=== PATIENT | male | born 1965 ===

== ENCOUNTER → 2020-05-27 15:07 | Outpatient (BNVA) | payer BC, SELFPAY | PROVIDERS: PCP Internal Medicine; Visit Provider Urology ==

== ENCOUNTER → 2021-06-17 15:26 | Outpatient (BNVA) | payer BC, SELFPAY | PROVIDERS: PCP Internal Medicine; Visit Provider Urology | DX: Z13.89 Encounter for screening for other disorder (principal) ==

== ENCOUNTER → 2022-09-03 15:04 | Outpatient (BNVA) | payer BC, SELFPAY | PROVIDERS: PCP Internal Medicine; Visit Provider Nurse Practitioner Family ==

== ENCOUNTER 2022-10-19 16:00 | Outpatient (AMB) | payer BC, SELFPAY ==
--- NOTE | 2022-10-19 16:00 | A.OFFVIS_ITS ---
Intake Intake Visit Reasons: Surgery questions (11/29) Intake Note: Patient presents for televisit/patient has questions regarding surgery Urology Medications: none Blood Thinner: aspirin Manager Of Environmental Services Required: No Allergies No Known Allergies Allergy (Verified 10/19/22 16:01) HPI HPI Comments History of Present Illness Details Jaspal is a pleasant male. He is a patient of Dr. Lopez. He is seen for the following urologic conditions - lower urinary tract symptoms - kidney stones Telemedicine Evaluation 15 min Consultation Doximity Edward Video attempted Reviewed CT scan which shows multiple small stones bilaterally At does report having pain on both sides At this stage will plan for bilateral ureteroscopy Questions answered Lower urinary tract symptoms Mild weakness of stream Nocturia No current medications At this point does not have significant bother Continue surveillance Nephrolithiasis Prior stones Imaging - 06/09 renal ultrasound right multiple 4 mm stones, left 6 mm and renal cyst on left with 2.3 cm maximum - 12/10 renal ultrasound small stones rig ht, stable cyst on left side which has coarse calcifications - 11/10 CT scan with multiple calculi elisa ateral PFSH Medical History Aortic root aneurysm History of COVID-19 GERD (gastroesophageal reflux disease) Sarcoidosis Sleep apnea Bicuspid aortic valve BPH (benign prostatic hyperplasia) Nephrolithiasis Elevated cholesterol HTN (hypertension) Surgical History Hx of varicose vein ligation History of esophagogastroduodenoscopy (EGD) History of total right hip replacement History of open reduction and internal fixation (ORIF) procedure H/O colonoscopy Social History Are you a primary personal care worker to a significant other at home: No Do you presently have visiting nurse or other home services: No Patient Tobacco Use Status: Never used Tobacco Use of substances other than those prescribed or required for medical reasons: No Have you been hit, kicked, punched, or otherwise hurt by someone within the past year? If so, by whom?: No Are you DNR?: No Advance Directives: No Advance Directives Information Provided: Yes (brochure mailed) Advance Directives on File: No Recently lost weight without trying: Yes How much weight loss: 14-23 pounds Eating poorly because of decreased appetite: No Nutrition screen score: 4 Nutrition Risks: No Nutritional Risk Poor oral hygiene: No Review of Systems Const Reports as per HPI and Reports no additional complaints Card Reports as per HPI and Reports no additional complaints Resp Reports as per HPI and Reports no additional complaints GI Reports as per HPI and Reports no additional complaints Reports as per HPI Musc Reports no additional complaints and Reports as per HPI Neuro Reports no additional complaints and Reports as per HPI Physical Exam Const General: cooperative, healthy appearing, comfortable and no acute distress Orientation/consciousness: patient oriented x3 HEENT Face and sinus: Yes normal facial exam Mouth: moist mucous membranes Neck Neck: Yes normal visual inspection, Yes full ROM and Yes trachea midline Chest Chest palpation & inspection: normal inspection of the chest Resp Effort & Inspection: normal respiratory effort, able to speak in complete sentences and no respiratory distress GI Inspection: Yes normal to inspection Back/Spine/Pelvis Cervical Spine: normal cervical lordosis Thoracic/Lumbar Spine: thoracic and lumbar spine normal to inspection Skin General skin exam: no rashes or lesions noted Neuro General: patient oriented x3, tone normal and moves all extremities Extrem General: Yes normal to inspection and Yes capillary refill normal Assessment & Plan Assessment & Plan (1) Renal cyst: Code(s): N28.1 - Cyst of kidney, acquired (2) Nephrolithiasis: Code(s): N20.0 - Calculus of kidney (3) BPH w urinary obs/LUTS: Code(s): N40.1 - Benign prostatic hyperplasia with lower urinary tract symptoms; N13.8 - Other obstructive and reflux uropathy Plan Risks, benefits and alternatives to therapy were discussed. These include but are not limited to infection, bleeding, damage to local organs and tissues, need for further interventions. Anesthetic risks regarding cardiac arrhythmia, blood clots, and potential mortality were discussed. The patient understands the typical recovery time and the outpatient nature of the procedure. After consideration of these risks the patient gives full inform ed consent and they wish to move ahead with the procedure. Cystoscopy, bilateral retrograde, bilateral ureteroscopy with laser lithotripsy and stent Patient Instructions: Imaging studies, laboratory and physical exam results were discussed and reviewed in detail. No major barriers to patient understanding were identified. An opportunity to ask questions regarding the treatment plan was provided. All questions were answered. The patient expressed understanding and agreement with the above treatment plan. The patient is aware they should contact our office by phone for worsening of their current condition or the appearance of new urologic symptoms. Compliance is encouraged with any medications and followup testing that is ordered. It is a privilege to participate in the urologic care of your patient. If you have any questions or concerns regarding treatment for the above conditions, or other urologic issues, please do not hesitate to contact me. The office telephone contact is [phone]. This note is constructed using voice recognition software. While every effort has been made to ensure accuracy grove worker errors may have been included. Yours sincerely, Dr Sesar Lynn MD, [facility] - Urology Providers of Expert, Compassionate Care for the Genitourinary System Telehealth Telehealth Location of provider rendering services: practice address Location of patient: address on file Patient Identification confirmed using: Name, : Yes Telehealth method: video Patient verbally consented to treatment: Yes Patient verbally consented to billing insurance company: Yes Patient informed of any privacy concerns related to visit: Yes Coding Level of Care Code Tele Est Pt Level 4 (95107) Diagnoses Renal cyst N28.1 Nephrolithiasis N20.0 BPH w urinary obs/LUTS N40.1; N13.8
== END 2022-10-19 16:40 | disposition home or self-care (01) ==
LOC: HO.HUSH 16:00
PROVIDERS: PCP Internal Medicine; Visit Provider Urology
DX: N28.1 Cyst of kidney, acquired (principal); N20.0 Calculus of kidney; N40.1 Benign prostatic hyperplasia with lower urinary tract symptoms; N13.8 Other obstructive and reflux uropathy
CPT/HCPCS: 99214

== ENCOUNTER → 2022-10-19 16:00 | Outpatient (BNVA) | payer BC, SELFPAY | PROVIDERS: PCP Internal Medicine; Visit Provider Urology ==

== ENCOUNTER 2022-11-29 06:54 | Day surgery (SDC) | payer BC, SELFPAY ==
[2022-11-25 10:33] VITALS: BMI 33.5
--- NOTE | 2022-11-25 13:59 | HO.ANESPROP2 ---
Documented by User: Nenita Kolb NP 11/26/22 09:56 HPI - Anesthesia Eval Consult details Narrative: 57yo M for Left Cystoscopy, Ureteroroscopy, Retro, Laser,poss stent Follows cardiology. Last seen 10/2022 Bicuspid Aortic Valve and Aortic root aneurysm both stable. AYALA and fatigue likely r/t to covid/pulmo Follows pulmo. Last seen 10/2022 Covid 10/22/22 Sarcoid (2022 CT scan stable vs 2019) and MARYBETH (unable to use CPAP since covid) Pt notes lump in throat. Referred for urgent laryngoscopy. Case reviewed with Dr Orellana. Ok for DOS eval d/t urgency of renal stones. [facility] Active Problems Active Problems: All Active Problems (Updated 11/25/22 @ 10:53 by Renetta Moreno RN) Renal cyst (Acute) Nephrolithiasis (Acute) BPH w urinary obs/LUTS (Acute) Past Medical History Medical History Aortic root aneurysm History of COVID-19 GERD (gastroesophageal reflux disease) Sarcoidosis Sleep apnea Bicuspid aortic valve BPH (benign prostatic hyperplasia) Nephrolithiasis Elevated cholesterol HTN (hypertension) Surgical History Surgical History Hx of varicose vein ligation History of esophagogastroduodenoscopy (EGD) History of total right hip replacement History of open reduction and internal fixation (ORIF) procedure H/O colonoscopy Social History Social History Are you a primary md do resident urgent care to a significant other at home: No Do you presently have visiting nurse or other home services: No Patient Tobacco Use Status: Never used Tobacco Use of substances other than those prescribed or required for medical reasons: No Have you been hit, kicked, punched, or otherwise hurt by someone within the past year? If so, by whom?: No Are you DNR?: No Advance Directives: No Advance Directives Information Provided: Yes (brochure mailed) Advance Directives on File: No Recently lost weight without trying: Yes How much weight loss: 14-23 pounds Eating poorly because of decreased appetite: No Nutrition screen score: 4 Nutrition Risks: No Nutritional Risk Poor oral hygiene: No Meds Allergies Allergy/AdvReac Type Severity Reaction Status Date / Time No Known Allergies Allergy Verified 10/19/22 16:01 Home Medications Medication Instructions Recorded Confirmed Last Taken Type candesartan 4 mg tablet 4 mg PO BEDTIME 05/27/20 11/25/22 Unknown History aspirin 81 mg tablet,delayed 81 mg PO BEDTIME 12/22/21 11/25/22 Unknown History release (Adult Low Dose Aspirin) alirocumab 75 mg/mL subcutaneous 75 mg subcut Q2W 09/03/22 11/25/22 Unknown History pen injector (Praluent Pen) atorvastatin 20 mg tablet 20 mg PO BEDTIME 09/03/22 11/25/22 Unknown History cholecalciferol (vitamin D3) 50 50 mcg PO DAILY 11/25/22 11/25/22 Unknown History mcg (2,000 unit) capsule (Vitamin D3) fluticasone fur. 100 mcg-umeclid 1 inh inhalation QAM 11/25/22 11/25/22 Unknown History 62.5 mcg-vilant 25 mcg inhalat.powder (Trelegy Ellipta) omeprazole 20 mg tablet,delayed 20 mg PO BID 11/25/22 11/25/22 Unknown History release Exam Exam Date and Time: November 25, 2022 1359 Height,Weight and Vital Signs: Height 5 ft 11 in Weight 108.862 kg Pertinent Lab Results Pertinent Lab Results: CBC and CMP 09/2022 from outside facility WNL except mild increase BUN Narrative Narrative: EKG 10/2022 NSR @ 61, LAFB ECHO 09/2022 Moderately dilated LV LVEF 55-65% Normal diastolic function bicuspid aortic valve mild to moderate aortic insuffic aortic root 4.3cm PFT 08/2022 Spirometry: Nml FEV1 and FVC. No bronchodilator response. Nml flow volume loops. Nml total lung capacity Nml diffusion capacity Nml PFT with nitric oxide level indicating intermedate level of nitric oxide Assessment and Plan Assessment Anesthesia Assessment: Chart Reviewed Documented by User: Rahel Dupont MD 11/29/22 08:17 [facility] Past Medical History Medical History Aortic root aneurysm History of COVID-19 GERD (gastroesophageal reflux disease) Sarcoidosis Sleep apnea Bicuspid aortic valve BPH (benign prostatic hyperplasia) Nephrolithiasis Elevated cholesterol HTN (hypertension) Family History Family history of problems with anesthesia: No Surgical History Surgical History Hx of varicose vein ligation History of esophagogastroduodenoscopy (EGD) History of total right hip replacement History of open reduction and internal fixation (ORIF) procedure H/O colonoscopy History of Problems with Anesthesia: No Social History Social History Are you a primary md do resident urgent care to a significant other at home: No Do you presently have visiting nurse or other home services: No Patient Tobacco Use Status: Never used Tobacco Use of substances other than those prescribed or required for medical reasons: No Have you been hit, kicked, punched, or otherwise hurt by someone within the past year? If so, by whom?: No Are you DNR?: No Advance Directives: No Advance Directives Information Provided: Yes (brochure mailed) Advance Directives on File: No Recently lost weight without trying: Yes How much weight loss: 14-23 pounds Eating poorly because of decreased appetite: No Nutrition screen score: 4 Nutrition Risks: No Nutritional Risk Poor oral hygiene: No Meds Allergies Allergy/AdvReac Type Severity Reaction Status Date / Time No Known Allergies Allergy Verified 10/19/22 16:01 Home Medications Medication Instructions Recorded Confirmed Last Taken Type candesartan 4 mg tablet 4 mg PO BEDTIME 05/27/20 11/25/22 Unknown History aspirin 81 mg tablet,delayed 81 mg PO BEDTIME 12/22/21 11/25/22 Unknown History release (Adult Low Dose Aspirin) alirocumab 75 mg/mL subcutaneous 75 mg subcut Q2W 09/03/22 11/25/22 Unknown History pen injector (Praluent Pen) atorvastatin 20 mg tablet 20 mg PO BEDTIME 09/03/22 11/25/22 Unknown History cholecalciferol (vitamin D3) 50 50 mcg PO DAILY 11/25/22 11/25/22 Unknown History mcg (2,000 unit) capsule (Vitamin D3) fluticasone fur. 100 mcg-umeclid 1 inh inhalation QAM 11/25/22 11/25/22 Unknown History 62.5 mcg-vilant 25 mcg inhalat.powder (Trelegy Ellipta) omeprazole 20 mg tablet,delayed 20 mg PO BID 11/25/22 11/25/22 Unknown History release Exam Airway Mallampati Class: II TM Dist: >3cm Neck ROM: Full Heart: rrr Lungs: cta Assessment and Plan Final Anesthetic Review Family History of Problems with Anesthesia: No History of Problems with Anesthesia: No NPO: Yes ASA Class: III Final Preanesthetic Review: No Changes in Pt Med Stat, Meds/Allgs Chart Reviewed, Consent Obtained/Reviewed and Anes Risks/Benef Reviewed Patient Risk: Intermediate Procedure Risk: Low Anesthetic Plan Anesthetic Plan: GA Disposition: Standard PACU
[2022-11-29] VITALS (8 sets, daily range): BP systolic 107–128; BP diastolic 58–76; PULSE 49–63; RESP 16–18; TEMP 36.3–36.9; O2SAT 93–99
--- NOTE | ~2022-11-29 | FL_ITS ---
EXAMINATION: XR FLUOROSCOPY WITH IMAGES CLINICAL INFORMATION: Left stone. COMPARISON: None available. TECHNIQUE: Fluoroscopy Supervised By: Dr. Sesar Lynn. Fluoroscopy Time: 42.7 seconds. Cumulative Dose: 18.43 mGy. DAP: N/A Images: 3. FINDINGS: Fluoroscopy guidance for bilateral retrograde exam. Images demonstrate contrast opacification of both renal collecting systems. FL/FL guidance in OR IMPRESSION: Fluoroscopy guidance for urology procedure.
--- NOTE | 2022-11-29 08:28 | HE.PHANOTE ---
RE LEVOFLOXACIN MESSAGED DR PENN ABOUT RISK OF AORTIC DISSECTION/ANUERYSM IN PTS WITH PMH OF SUCH AND LEVOFLOXACIN USE. PROVIDER WANTS TO CONTINUE WITH CURRENT COURSE FLORENTINO
[2022-11-29] MEDS: Lactated Ringers 1,000 ML 100 ML IVCONT (08:29)
--- NOTE | 2022-11-29 08:30 | MHC.SHP ---
Pre-Procedural Eval Section A Date of Service: 11/29/22 The patient is an INPATIENT: No Changes since office visit: No Cold of Flu in the past 2 weeks, No New Medical Problems, No Changes in Medication and No Patient answered all questions The History & Physical has been completed within 30 days and I have reviewed it.: Yes Section B Chief Complaint: Calculus of kidney Details of Present Illness: Bilateral stones, bilateral procedure with bilateral retrogrades Allergies: Allergies Allergy/AdvReac Type Severity Reaction Status Date / Time No Known Allergies Allergy Verified 10/19/22 16:01 Plan Diagnosis/Plan: Unchanged (Cystoscopy, bilateral retrograde, bilateral ureteroscopy with laser lithotripsy stent placed) I have reviewed the history and physical and performed a pertinent physical examination on my patient. No changes have occurred unless specified. Time Spent With Patient Time: Total time managing care of this patient today ____ minutes.
--- NOTE | 2022-11-29 10:04 | W.PM.OPN ---
Operative Note Operative Note Date of Service: 11/29/22 Narrative: PreOperative Diagnosis: Bilateral renal stones Post Operative Diagnosis: bilateral renal stones Procedure: - cystoscopy, bilateral retrograde - bilateral dilatation of ureteric orifice under fluoroscopy - bilateral ureteroscopy, laser lithotripsy, stone basketing Surgeon: Dr Sesar Lynn Anesthesia: General Indications for procedure: bilateral renal stones Procedure: After informed consent was verified patient was brought to the operating placed in supine position. Anesthesia was administered per protocol. Patient was placed in modified dorsal lithotomy position and prepped and draped in a sterile fashion. Safety pause time-out and side of surgery confirmed. Antibiotics confirmed. 22 Vietnamese cystoscope was inserted per urethra. Bladder was normal in its entirety. Both ureteric orifices were in normal position. The left ureteric orifice was cannulated and a retrograde examination was performed. No filling defects seen. A Sensor guidewire was placed up to the level of the renal pelvis under fluoroscopy. The rigid cystoscope was removed and the inner cannula of ureteric access sheath was used under fluoroscopy to dilate the ureteric orifice. The ureteric access sheath was placed and the inner cannula with access wire removed. The disposable digital flexible ureteral scope was placed. Stones were encountered in every renal calyx. All 7 had a small stone sitting on the renal papilla. The stones were broken using dusting settings on the laser. There were clearly submucosal calcium deposition consistent with a Medullary sponge type picture. Once complete the ureteroscope was backed slowly out of the kidney and ureter. There was minimal damage to the ureteral mucosa and a decision was made not to leave a stent. Attention was directed to the right side. The right ureteric orifice was cannulated and a retrograde examination was performed. No filling defects seen. A Sensor guidewire was placed up to the level of the renal pelvis under fluoroscopy. The rigid cystoscope was removed and the inner cannula of ureteric access sheath was used under fluoroscopy to dilate the ureteric orifice. The ureteric access sheath was placed and the inner cannula with access wire removed. The disposable digital flexible ureteral scope was placed. Stones were encountered in every renal calyx. All 6 had a stone sitting on the renal papilla. On this side a basket was used to remove stones from each papilla. There were clearly submucosal calcium deposition consistent with a Medullary sponge type picture. Once complete the ureteroscope was backed slowly out of the kidney and ureter. There was minimal damage to the ureteral mucosa and a decision was made not to leave a stent. The bladder was emptied. The patient tolerated the procedure well and was extubated in the operating room, and transferred in stable condition to the recovery area. Pathology: stones Drains: none
[2022-11-29] MEDS: Phenazopyridine HCL 100 MG TABLET PO (10:26)
[2022-11-29] MEDS: ondansetron HCL 4 MG/2 ML VIAL IVPUSH (10:37)
[2022-11-29] MEDS: Acetaminophen 325 MG TABLET 975 MG PO (10:50)
[2022-12-02 23:13] LABS: Stone Source RENAL STONE
== END 2022-11-29 11:26 | disposition home or self-care (01) ==
PROVIDERS: PCP Internal Medicine; Visit Provider Urology
PROC: (CPT 52353; principal; 2022-11-29 08:40)
DX: N20.0 Calculus of kidney (principal); N28.1 Cyst of kidney, acquired; N40.0 Benign prostatic hyperplasia without lower urinary tract symptoms; D86.9 Sarcoidosis, unspecified; I10 Essential (primary) hypertension; E78.00 Pure hypercholesterolemia, unspecified; Q23.1 Congenital insufficiency of aortic valve; Q25.43 Congenital aneurysm of aorta; G47.33 Obstructive sleep apnea (adult) (pediatric); Z99.89 Dependence on other enabling machines and devices; Z79.82 Long term (current) use of aspirin; Z79.899 Other long term (current) drug therapy; Z79.51 Long term (current) use of inhaled steroids; Z86.16 Personal history of COVID-19; Z98.890 Other specified postprocedural states
CPT/HCPCS: 52353; 52352; 82365; 88300; C1758; C1769; J1885; J1956; J2405; J3010; Q9967

== ENCOUNTER → 2022-11-29 06:54 | Outpatient (BNV) | payer BC, SELFPAY | PROVIDERS: PCP Internal Medicine; Visit Provider Urology | DX: N20.0 Calculus of kidney (principal) | CPT/HCPCS: 52352; 52353 ==

== ENCOUNTER 2022-12-14 08:51 | Outpatient (AMB) | payer BC, SELFPAY ==
--- NOTE | 2022-12-14 08:53 | A.OFFVIS_ITS ---
Intake Intake Visit Reasons: stent removal? Intake Note: Patient is Present for Possible Stent Removal Urology Medication: Tamsulosin (Patient is currently not taking Tamsulosin) Antibiotic Allergies: None Blood Thinners: Aspirin Pharmacy: [facility] Compliants: Patient states that he does not currently have a stent in place Allergies No Known Allergies Allergy (Verified 12/14/22 08:55) Medication List - Last Reconciled 12/14/22 by Sesar Lynn MD alirocumab (Praluent Pen) 75 mg subcut Q2W aspirin (Adult Low Dose Aspirin) 81 mg PO BEDTIME atorvastatin 20 mg PO BEDTIME candesartan 4 mg PO BEDTIME cholecalciferol (vitamin D3) (Vitamin D3) 50 mcg PO DAILY zmypcnijnpb-enbylecro-rvinygak 100-62.5-25 mcg (Trelegy Ellipta) 1 inh inhalation QAM omeprazole 20 mg PO BID omeprazole 20 mg PO BID phenazopyridine (Pyridium) 100 mg PO TID PRN 4 days tamsulosin 0.4 mg PO BEDTIME 14 days HPI HPI Comments History of Present Illness Details Jaspal is a pleasant male. He is a patient of Dr. Lopez. He is seen for the following urologic conditions - lower urinary tract symptoms - kidney stones Postprocedure Bilateral laser Discussed stone composition Calcium oxalate monohydrate 90% Plan for Litholink to direct medical management imaging in 3 month Lower urinary tract symptoms Mild weakness of stream Nocturia No current medications At this point does not have significant bother Continue surveillance Nephrolithiasis Prior stones Composition - 11/10 calcium oxalate monohydrate 90% Imaging - 06/09 renal ultrasound right multiple 4 mm stones, left 6 mm and renal cyst on left with 2.3 cm maximum - 12/10 renal ultrasound small stones rig ht, stable cyst on left side which has coarse calcifications - 11/10 CT scan with multiple calculi elisa ateral Intervention - 11/10 bilateral ureteroscopy PFSH Medical History Aortic root aneurysm History of COVID-19 GERD (gastroesophageal reflux disease) Sarcoidosis Sleep apnea Bicuspid aortic valve BPH (benign prostatic hyperplasia) Nephrolithiasis Elevated cholesterol HTN (hypertension) Surgical History Hx of varicose vein ligation History of esophagogastroduodenoscopy (EGD) History of total right hip replacement History of open reduction and internal fixation (ORIF) procedure H/O colonoscopy Social History Are you a primary child caregiver to a significant other at home: No Do you presently have visiting nurse or other home services: No Patient Tobacco Use Status: Never used Tobacco Review of Systems Const Denies chills and Denies fever(s) Card Reports no additional complaints and Denies syncope Resp Denies cough GI Denies abdominal pain and Denies heartburn Reports as per HPI and Denies change in libido Neuro Denies syncope Psych Denies change in libido Endo Denies change in libido Physical Exam Const General: cooperative, healthy appearing, comfortable and no acute distress Orientation/consciousness: patient oriented x3 HEENT Face and sinus: Yes normal facial exam Mouth: moist mucous membranes Neck Neck: Yes normal visual inspection, Yes full ROM and Yes trachea midline Chest Chest palpation & inspection: normal inspection of the chest Resp Effort & Inspection: normal respiratory effort, able to speak in complete sentences and no respiratory distress GI Inspection: Yes normal to inspection Back/Spine/Pelvis Cervical Spine: normal cervical lordosis Thoracic/Lumbar Spine: thoracic and lumbar spine normal to inspection Skin General skin exam: no rashes or lesions noted Neuro General: patient oriented x3, gait normal, tone normal and moves all extremities Extrem General: Yes normal to inspection and Yes capillary refill normal Results AMB Urinalysis, Automated UA Leukoctes 0 Nanda/uL Last Edit by LUDMILA Mcgraw on 12/14/22 09:04 UA Nitrite Negative Last Edit by LUDMILA Mcgraw on 12/14/22 09:04 UA Urobilinogen 0.2 mg/dL Last Edit by LUDMILA Mcgraw on 12/14/22 09:0 4 UA Protein 15 mg/dL Last Edit by LUDMILA Mcgraw on 12/14/22 09:04 UA pH 5.5 Last Edit by LUDMILA Mcgraw on 12/14/22 09:04 UA Blood 10 Mehdi/uL Last Edit by LUDMILA Mcgraw on 12/14/22 09:04 UA Specific [place] 1.020 Last Edit by LUDMILA Mcgraw on 12/14/22 09: 04 UA Ketone Negative Last Edit by Yamileth Murphy, RMA on 12/14/22 09:04 UA Bilirubin 0 mg/dL Last Edit by Yamileth Murphy, RMA on 12/14/22 09:04 UA Glucose 0 mg/dL Last Edit by Yamileth Murphy RMA on 12/14/22 09:04 Results Reviewed Results Reviewed: Laboratory Last Values Urine pH (Auto) 5.5 12/14/22 08:57 Specific [place] (Auto) 1.020 12/14/22 08:57 Urine Protein (Auto) 15 mg/dL 12/14/22 08:57 Glucose (UA)(Auto) 0 mg/dL 12/14/22 08:57 Urine Ketones (Auto) Negative 12/14/22 08:57 Urine Blood (Auto) 10 Mehdi/uL 12/14/22 08:57 Urine Nitrite (Auto) Negative 12/14/22 08:57 Urine Bilirubin (Auto) 0 mg/dL 12/14/22 08:57 Urine Urobilinogen (Auto) 0.2 mg/dL 12/14/22 08:57 Leukocyte Esterase (Auto) 0 Nanda/uL 12/14/22 08:57 Assessment & Plan Assessment & Plan (1) Nephrolithiasis: Comment: Calcium oxalate monohydrate 90% Code(s): N20.0 - Calculus of kidney Plan Three month follow-up imaging and Litholink Orders: Orders 2 AMB Urinalysis Automated Today Z13.9 - Encounter for screening, unspecified US renal BI 3 Months N20.0 - Calculus of kidney Patient Instructions: Imaging studies, laboratory and physical exam results were discussed and reviewed in detail. No major barriers to patient understanding were identified. An opportunity to ask questions regarding the treatment plan was provided. All questions were answered. The patient expressed understanding and agreement with the above treatment plan. The patient is aware they should contact our office by phone for worsening of their current condition or the appearance of new urologic symptoms. Compliance is encouraged with any medications and followup testing that is ordered. It is a privilege to participate in the urologic care of your patient. If you have any questions or concerns regarding treatment for the above conditions, or other urologic issues, please do not hesitate to contact me. The office telephone contact is [phone]. This note is constructed using voice recognition software. While every effort has been made to ensure accuracy analyzer sales errors may have been included. Yours sincerely, Dr Sesar Lynn MD, [facility] - Urology Providers of Expert, Compassionate Care for the Genitourinary System Coding Level of Care Code Est Pt Level 3 (51809) Diagnoses Nephrolithiasis N20.0
== END 2022-12-14 09:15 | disposition home or self-care (01) ==
LOC: HO.HUSH 08:51
PROVIDERS: PCP Internal Medicine; Visit Provider Urology
DX: Z13.9 Encounter for screening, unspecified (principal); N20.0 Calculus of kidney
CPT/HCPCS: 99213

== ENCOUNTER → 2022-12-14 08:51 | Outpatient (BNVA) | payer BC, SELFPAY | PROVIDERS: PCP Internal Medicine; Visit Provider Urology | DX: Z48.816 Encounter for surgical aftercare following surgery on the genitourinary system (principal) | CPT/HCPCS: 81003 ==

== ENCOUNTER 2023-03-09 15:09 | Outpatient (AMB) | payer BC, SELFPAY ==
--- NOTE | 2023-03-09 15:23 | A.OFFVIS_ITS ---
Intake Intake Visit Reasons: /US/First Wind(set) Intake Note: Patient is Present today for a follow-up on Litholink Results Urology Medication: Tamsulosin (Patient is currently not taking Tamsulosin) Antibiotic Allergies: None Blood Thinners: Aspirin Pharmacy: [facility] Trial Required: No Accompanied by: Self / Same As Patient Allergies No Known Allergies Allergy (Verified 03/09/23 15:24) Medication List - Last Reconciled 03/09/23 by Sesar Lynn MD alirocumab (Praluent Pen) 75 mg subcut Q2W aspirin (Adult Low Dose Aspirin) 81 mg PO BEDTIME atorvastatin 20 mg PO BEDTIME candesartan 4 mg PO BEDTIME cholecalciferol (vitamin D3) (Vitamin D3) 50 mcg PO DAILY wdntgltuhax-djrciwind-vedxeplc 100-62.5-25 mcg (Trelegy Ellipta) 1 inh inhalation QAM omeprazole 20 mg PO BID omeprazole 20 mg PO BID phenazopyridine (Pyridium) 100 mg PO TID PRN 4 days potassium citrate ER 20 mEq (2 x 10 mEq (1,080 mg)) PO BID 90 days tamsulosin 0.4 mg PO BEDTIME 14 days HPI HPI Comments History of Present Illness Details Jaspal is a pleasant male. He is a patient of Dr. Lopez. He is seen for the following urologic conditions - lower urinary tract symptoms - kidney stones Calcium oxalate monohydrate 90% Imaging without evidence of stones History multiple people with stones 24 hour urine discussed. Good volume, L ow pH, high sodium 255, low citrate 32 Recommend initiation potassium citrate with advice for minimizing sodium intake 6 month follow-up imaging repeat Litholi nk Lower urinary tract symptoms Mild weakness of stream Nocturia No current medications At this point does not have significant bother Continue surveillance Nephrolithiasis Prior stones Composition - 11/10 calcium oxalate monohydrate 90% Imaging - 06/09 renal ultrasound right multiple 4 mm stones, left 6 mm and renal cyst on left with 2.3 cm maximum - 12/10 renal ultrasound small stones rig ht, stable cyst on left side which has coarse calcifications - 11/10 CT scan with multiple calculi elisa ateral - 02/10 renal ultrasound no stones, know n left stable cyst Intervention - 11/10 bilateral ureteroscopy PFSH Medical History Aortic root aneurysm History of COVID-19 GERD (gastroesophageal reflux disease) Sarcoidosis Sleep apnea Bicuspid aortic valve BPH (benign prostatic hyperplasia) Nephrolithiasis Elevated cholesterol HTN (hypertension) Surgical History Hx of varicose vein ligation History of esophagogastroduodenoscopy (EGD) History of total right hip replacement History of open reduction and internal fixation (ORIF) procedure H/O colonoscopy Social History Are you a primary day care aide to a significant other at home: No Do you presently have visiting nurse or other home services: No Patient Tobacco Use Status: Never used Tobacco Review of Systems Const Denies chills and Denies fever(s) Card Reports no additional complaints and Denies syncope Resp Denies cough GI Denies abdominal pain and Denies heartburn Reports as per HPI and Denies change in libido Neuro Denies syncope Psych Denies change in libido Endo Denies change in libido Physical Exam Const General: cooperative, healthy appearing, comfortable and no acute distress Orientation/consciousness: patient oriented x3 HEENT Face and sinus: Yes normal facial exam Mouth: moist mucous membranes Neck Neck: Yes normal visual inspection, Yes full ROM and Yes trachea midline Chest Chest palpation & inspection: normal inspection of the chest Resp Effort & Inspection: normal respiratory effort, able to speak in complete sentences and no respiratory distress GI Inspection: Yes normal to inspection Back/Spine/Pelvis Cervical Spine: normal cervical lordosis Thoracic/Lumbar Spine: thoracic and lumbar spine normal to inspection Skin General skin exam: no rashes or lesions noted Neuro General: patient oriented x3, gait normal, tone normal and moves all extremities Extrem General: Yes normal to inspection and Yes capillary refill normal Assessment & Plan Assessment & Plan (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 No major barriers to patient understanding were identified. An opportunity to ask questions regarding the treatment plan was provided. All questions were answered. The patient expressed understanding and agreement with the above treatment plan. The patient is aware they should contact our office by phone for worsening of their current condition or the appearance of new urologic symptoms. Compliance is encouraged with any medications and followup testing that is ordered. It is a privilege to participate in the urologic care of your patient. If you have any questions or concerns regarding treatment for the above conditions, or other urologic issues, please do not hesitate to contact me. The office telephone contact is [phone]. This note is constructed using voice recognition software. While every effort has been made to ensure accuracy supervisor screen printing errors may have been included. Yours sincerely, Dr Sesar Lynn MD, [facility] - Urology Providers of Expert, Compassionate Care for the Genitourinary System Coding Level of Care Code Est Pt Level 4 (63079) Diagnoses Hypocitraturia R82.991 Nephrolithiasis N20.0
== END 2023-03-09 15:52 | disposition home or self-care (01) ==
PROVIDERS: PCP Internal Medicine; Visit Provider Urology
DX: R82.991 Hypocitraturia (principal); N20.0 Calculus of kidney
CPT/HCPCS: 99213

== ENCOUNTER → 2023-03-09 15:09 | Outpatient (BNVA) | payer BC, SELFPAY | PROVIDERS: PCP Internal Medicine; Visit Provider Urology ==

== ENCOUNTER 2023-09-06 15:41 | Outpatient (AMB) | payer BC, SELFPAY ==
--- NOTE | 2023-09-06 15:43 | MHC.OFFVIS ---
Intake Visit Reasons: 6m fu/litho Intake Note: Patient is present for Telephone Litho Results Allergies No Known Allergies Allergy (Verified 03/09/23 15:24) Medication List - Last Reconciled 09/06/23 by Sesar Lynn MD alirocumab (Praluent Pen) 75 mg subcut Q2W aspirin (Adult Low Dose Aspirin) 81 mg PO BEDTIME atorvastatin 20 mg PO BEDTIME candesartan 4 mg PO BEDTIME cholecalciferol (vitamin D3) (Vitamin D3) 50 mcg PO DAILY vexxjnkreqy-dsicwkqqi-kqmwwpyw 100-62.5-25 mcg (Trelegy Ellipta) 1 inh inhalation QAM omeprazole 20 mg PO BID omeprazole 20 mg PO BID phenazopyridine (Pyridium) 100 mg PO TID PRN 4 days potassium citrate ER 10 mEq PO BID 90 days tamsulosin 0.4 mg PO BEDTIME 14 days HPI Comments Details: Jaspal is a pleasant male. He is a patient of Dr. Lopez. He is seen for the following urologic conditions - lower urinary tract symptoms - kidney stones Telemedicine Evaluation 15 min Consultation [facility] Video Discussion about current Litholink Follow-up after starting potassium citrate Jump in citrate from 32 to 678 Cut back potassium citrate to 10 mEq p.o. b.i.d. Also noted to have continued high calcium 314, sodium 327 Recommendation to better manage salt intake as high calcium is related to high sodium Decreased protein intake Twelve month follow-up renal ultrasound with repeat Litholink Calcium oxalate monohydrate 90% 24 hour urine discussed. Good volume, Low pH, high sodium 255, low citrate 32, high calcium Recommend initiation potassium citrate with advice for minimizing sodium intake Lower urinary tract symptoms Mild weakness of stream Nocturia No current medications At this point does not have significant bother Continue surveillance Nephrolithiasis Prior stones Composition - 11/10 calcium oxalate monohydrate 90% Imaging - 06/09 renal ultrasound right multiple 4 mm stones, left 6 mm and renal cyst on left with 2.3 cm maximum - 12/10 renal ultrasound small stones right, stable cyst on left side which has coarse calcifications - 11/10 CT scan with multiple calculi bilateral - 02/10 renal ultrasound no stones, known left stable cyst Intervention - 11/10 bilateral ureteroscopy [facility] - 03/12 - Good volume, Low pH, high sodium 255, low citrate 32, high calcium - 09/11 - volume 2500, calcium 314, citrate 678, pH 6.4, sodium 327, uric acid 1011 [facility] Medical History Aortic root aneurysm History of COVID-19 GERD (gastroesophageal reflux disease) Sarcoidosis Sleep apnea Bicuspid aortic valve BPH (benign prostatic hyperplasia) Nephrolithiasis Elevated cholesterol HTN (hypertension) Surgical History Hx of varicose vein ligation History of esophagogastroduodenoscopy (EGD) History of total right hip replacement History of open reduction and internal fixation (ORIF) procedure H/O colonoscopy Social History Are you a primary healthcare network consultant to a significant other at home: No Do you presently have visiting nurse or other home services: No Patient Tobacco Use Status: Never used Tobacco Review of Systems Const All systems reviewed & are unremarkable except as noted in HPI and below Reports no additional complaints Resp Reports no additional complaints GI Reports no additional complaints Reports as per HPI Musc Reports no additional complaints Physical Exam Telemedicine evaluation Appropriate responses Regular breathing rate and rhythm HEENT Head: Yes normal to inspection Ears: hearing grossly normal bilaterally Eyes General: appearance normal, both eyes and all related structures Neck Neck: Yes normal visual inspection Chest Chest palpation & inspection: normal inspection of the chest Resp Effort & Inspection: normal respiratory effort and able to speak in complete sentences Telehealth Telehealth Telehealth Platform: [facility] Location of provider rendering services: practice address Location of patient: address on file Patient Identification confirmed using: Name, : Yes Telehealth method: video Patient verbally consented to treatment: Yes Patient verbally consented to billing insurance company: Yes Patient informed of any privacy concerns related to visit: Yes Minutes spent on Phone/Video with Pt.: 15 Assessment & Plan Assessment & Plan (1) Renal cyst: Code(s): N28.1 - Cyst of kidney, acquired Category: Medical (2) 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 Category: Medical (3) Nephrolithiasis: Comment: Calcium oxalate monohydrate 90% Code(s): N20.0 - Calculus of kidney Category: Medical Plan Twelve month follow-up imaging and ureter risk Orders: Orders US renal BI 12 Months N20.0 - Calculus of kidney URORISK 1 Year N20.0 - Calculus of kidney Medications: Changed From potassium citrate ER 20 mEq (2 x 10 mEq (1,080 mg)) PO BID 90 days 360 tabs 1RF N20.0 - Calculus of kidney, R82.991 - Hypocitraturia To potassium citrate ER 10 mEq PO BID 90 days 180 tabs 3RF N20.0 - Calculus of kidney, R82.991 - Hypocitraturia Patient Instructions: Imaging studies, laboratory and physical exam results were discussed and reviewed in detail. No major barriers to patient understanding were identified. An opportunity to ask questions regarding the treatment plan was provided. All questions were answered. The patient expressed understanding and agreement with the above treatment plan. The patient is aware they should contact our office by phone for worsening of their current condition or the appearance of new urologic symptoms. Compliance is encouraged with any medications and followup testing that is ordered. It is a privilege to participate in the urologic care of your patient. If you have any questions or concerns regarding treatment for the above conditions, or other urologic issues, please do not hesitate to contact me. The office telephone contact is [phone]. This note is constructed using voice recognition software. While every effort has been made to ensure accuracy operations staff specialist security errors may have been included. Yours sincerely, Dr Sesar Lynn MD, [facility] - Urology Providers of Expert, Compassionate Care for the Genitourinary System Coding Level of Care Code Tele Est Pt Level 3 (53260) Diagnoses Renal cyst N28.1 Hypocitraturia R82.991 Nephrolithiasis N20.0
== END 2023-09-06 16:42 | disposition home or self-care (01) ==
LOC: HO.HUSH 15:41
PROVIDERS: PCP Internal Medicine; Visit Provider Urology
DX: N28.1 Cyst of kidney, acquired (principal); R82.991 Hypocitraturia; N20.0 Calculus of kidney
CPT/HCPCS: 99213

== ENCOUNTER → 2023-09-06 15:41 | Outpatient (BNVA) | payer BC, SELFPAY | PROVIDERS: PCP Internal Medicine; Visit Provider Urology ==

== ENCOUNTER 2024-09-05 15:45 | Outpatient (AMB) | payer BC, SELFPAY ==
--- NOTE | 2024-09-05 15:47 | MHC.OFFVIS ---
Intake Visit Reasons: 1y/US/[facility] Intake Note: Patient is present for 1Y/US/[facility] Urology Medication:POTASSIUM CITRATE Antibiotic Allergy:NONE Blood Thinner:ASPIRIN Chain Splitter Required: No Allergies No Known Allergies Allergy (Verified 09/05/24 15:49) HPI Comments Details: Jaspal is a pleasant male. He is a patient of Dr. Lopez. He is seen for the following urologic conditions - lower urinary tract symptoms - kidney stones Yearly follow-up Had been on potassium citrate after being diagnosed with hypocitraturia Had been noted to have high calcium and high sodium Calcium oxalate monohydrate 90% 24 hour urine 09/11 - Good volume, Low pH, high sodium 255, low citrate 32, high calcium Recommend initiation potassium citrate with advice for minimizing sodium intake 09/12 good volume, low PH, high sodium discussed reducing Upper Sor[place] cheese intake, citrate 422 Twelve month follow-up repeat imaging, [facility], PSA Lower urinary tract symptoms Mild weakness of stream Nocturia No current medications At this point does not have significant bother Continue surveillance Nephrolithiasis Prior stones Composition - 11/10 calcium oxalate monohydrate 90% Imaging - 06/09 renal ultrasound right multiple 4 mm stones, left 6 mm and renal cyst on left with 2.3 cm maximum - 12/10 renal ultrasound small stones right, stable cyst on left side which has coarse calcifications - 11/10 CT scan with multiple calculi bilateral - 02/10 renal ultrasound no stones, known left stable cyst - 09/12 renal ultrasound small stone right side, bilateral renal cysts, bladder diverticulum Intervention - 11/10 bilateral ureteroscopy [facility] - 03/12 - Good volume, Low pH, high sodium 255, low citrate 32, high calcium - 09/11 - volume 2500, calcium 314, citrate 678, pH 6.4, sodium 327, uric acid 1011 [facility] Medical History Aortic root aneurysm History of COVID-19 GERD (gastroesophageal reflux disease) Sarcoidosis Sleep apnea Bicuspid aortic valve BPH (benign prostatic hyperplasia) Nephrolithiasis Elevated cholesterol HTN (hypertension) Surgical History Hx of varicose vein ligation History of esophagogastroduodenoscopy (EGD) History of total right hip replacement History of open reduction and internal fixation (ORIF) procedure H/O colonoscopy Social History Are you a primary administrator health care facility to a significant other at home: No Do you presently have visiting nurse or other home services: No Patient Tobacco Use Status: Never used Tobacco Review of Systems Const Denies chills and Denies fever(s) Card Reports no additional complaints and Denies syncope Resp Denies cough GI Denies abdominal pain and Denies heartburn Reports as per HPI and Denies change in libido Neuro Denies syncope Psych Denies change in libido Endo Denies change in libido Physical Exam Const General: cooperative, healthy appearing, comfortable and no acute distress Orientation/consciousness: patient oriented x3 HEENT Face and sinus: Yes normal facial exam Mouth: moist mucous membranes Neck Neck: Yes normal visual inspection, Yes full ROM and Yes trachea midline Chest Chest palpation & inspection: normal inspection of the chest Resp Effort & Inspection: normal respiratory effort, able to speak in complete sentences and no respiratory distress GI Inspection: Yes normal to inspection Back/Spine/Pelvis Cervical Spine: normal cervical lordosis Thoracic/Lumbar Spine: thoracic and lumbar spine normal to inspection Skin General skin exam: no rashes or lesions noted Neuro General: patient oriented x3, gait normal, tone normal and moves all extremities Extrem General: Yes normal to inspection and Yes capillary refill normal Assessment & Plan Assessment & Plan (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 Category: Medical (2) Nephrolithiasis: Comment: Calcium oxalate monohydrate 90% Code(s): N20.0 - Calculus of kidney Category: Medical (3) BPH w urinary obs/LUTS: Code(s): N40.1 - Benign prostatic hyperplasia with lower urinary tract symptoms; N13.8 - Other obstructive and reflux uropathy Category: Medical Plan Twelve month follow-up Refill citrate Orders: Orders US renal BI 12 Months N20.0 - Calculus of kidney URORISK 12 Months N20.0 - Calculus of kidney Prostate Specific Antigen 12 Months N20.0 - Calculus of kidney Medications: Refilled potassium citrate ER 10 mEq PO BID 180 tabs 3RF 90 days N20.0 - Calculus of kidney, R82.991 - Hypocitraturia Patient Instructions: This note is constructed using voice recognition software. While every effort has been made to ensure accuracy production line manager errors may have been included. Imaging studies, laboratory and physical exam results were discussed and reviewed in detail. No major barriers to patient understanding were identified. An opportunity to ask questions regarding the treatment plan was provided. All questions were answered. The patient expressed understanding and agreement with the above treatment plan. The patient is aware they should contact our office by phone for worsening of their current condition or the appearance of new urologic symptoms. Compliance is encouraged with any medications and followup testing that is ordered. It is a privilege to participate in the urologic care of your patient. If you have any questions or concerns regarding treatment for the above conditions, or other urologic issues, please do not hesitate to contact me. The office telephone contact is [phone]. 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
--- OUTSIDE RECORDS SUMMARY | 2024-09-05 17:51 | XMS_ITS | Encounter Summary ---
Author Organization Formerly [facility] Address [address] [place] [address] Care Team Providers Care Dolphin Researcher Name Role Phone Ubaldo Lopez MD Primary Care Provider [phone] Martir Chen MD Unavailable [phone] Laurel Romero PsyD Unavailable [phone] Encounter Details Date Type Department Care Team (Late st Contact Info) Description 02/21/2023 Scanned Document [facility] [address] [facility], [address] [place] [address] Martir Chen MD [address] [facility] [address] [place] [address] Social History Tobacco Use Types Packs/Day Years Used Date Smoking Tobacco: Never Smokeless Tobacco: Never Alcohol Use Standard Drinks/Week Comments Not Currently 0 (1 standard drink = 0.6 oz pur e alcohol) AUDIT-C Answer Date Recorded Q1: How often do you have a drink containing alc ohol? Monthly or less 09/27/2022 Q2: How many drinks containi ng alcohol do you have on a typical day when you are drinking? 1 or 2 09/27/2022 Q3: How often do you have si x or more drinks on one occasion? Less than monthly 09/27/2022 PHQ-2 Answer Date Recorded PHQ-2 Total Score 0 09/27/2022 [facility] [place] [facility] - Occupational Stress Questionnaire Answer Date Recorded Do you feel stress - tense, restless, nervous, or anxious, or unable to sleep at night because your mind is troubled all the time - these days? Not at all 12/07/2022 Physical Activity Answer Date Recorded Days of Exercise per Week 0 days 2021 Minutes of Exercise per Session 0 min 02/10/2022 Sex and Gender Information Value Date Recorded Sex Assigned at Male 05/07/2022 12:54 PM EST Legal Sex Male 2:52 PM EDT Gender Identity Male 05/07/2022 12:54 PM EST Sexual Orientation Heterosexual (straight) 05/07 12:54 PM EST documented as of this encounter Plan of Treatment Upcoming Encounters Date Type Department Care Team (Late st Contact Info) Description 09/10/2024 1:15 PM EDT Clinical Support [facility] [place] [address] [facility] [place] [address] 10/05/2024 11:20 AM EDT [facility] Visit [facility], [address] [place] [address] Martir Chen MD [address] [place] [id number] 10/11/2024 4:00 PM EDT Office Visit [facility] [place] [address] [phone] Shasha Epperson APRN [address] [facility] [address] [place] [address] 04/02/2025 2:00 PM EST Office Visit [facility] [place] [facility] [address] [facility], [address] [place] [phone] Yoon Cabrera MD [address] [place] [phone] documented as of this encounter Visit Diagnoses Not on filedocumented in this encounter Care Teams Dolphin Researcher Relationship Specialty Start Date End Date Ubaldo Lopez MD [address] [place] [phone] PCP - General Internal Medicine 05/23/20 Martir Chen MD [address] [facility] [address] [place] [address] Physician Rheumatology 02/20/21 Laurel Romero PsyD [address] [place] [address] Primary Clinician Psychology 09/27/22 documented as of this encounter
== END 2024-09-05 16:14 | disposition home or self-care (01) ==
LOC: HO.HUSH 15:46
PROVIDERS: PCP Internal Medicine; Visit Provider Urology
DX: R82.991 Hypocitraturia (principal); N20.0 Calculus of kidney; N40.1 Benign prostatic hyperplasia with lower urinary tract symptoms; N13.8 Other obstructive and reflux uropathy
CPT/HCPCS: 99214

== ENCOUNTER → 2024-09-05 15:45 | Outpatient (BNVA) | payer BC, SELFPAY | PROVIDERS: PCP Internal Medicine; Visit Provider Urology ==